=== PATIENT | male | born 1960 | race Caucasian/White ===

== ENCOUNTER 2019-08-03 03:40 | Inpatient (IN) | payer BC ==
[2019-08-03] MEDS ORDERED: ONDANSETRON 4 MG/2 ML VIAL IVP PRN (04:18)
[2019-08-03] MEDS ORDERED: HYDROmorphone 1 MG/ML 1 ML SYRINGE IVP PRN (04:18)
[2019-08-03] MEDS ORDERED: HYDROmorphone 0.5 MG/0.5 ML SYRINGE IVP PRN (04:18)
[2019-08-03] MEDS ORDERED: NALOXONE 0.4 MG/ML 1 ML VIAL IV PRN (04:18)
--- NOTE | 2019-08-03 04:22 | ED ---
General Adult HPI - General Chief complaint: Urogenital Stated complaint: Kidney stone Time Seen by Provider: 08/03/19 03:59 Source: patient, EMS Mode of arrival: EMS Limitations: no limitations - History of Present Illness Initial comments: This patient is 59-year-old man with history of previous nephrolithiasis, who presents with complaint of right sided flank pain that is been going on approximately 2 days. The patient had gone to [facility] to be evaluated for this and was found to have a 13 mm stone at the right ureteropelvic junction. There was associated hydronephrosis. In addition the patient's labs showed a creatinine of 2.1 and BUN of 43 which is elevated above the baseline. The patient did receive 1 g Rocephin at the other facility. The patient has previously been treated by Dr. Kessler. The patient does acknowledge having some low-grade fever and chills over the course of this evening. Onset/Timin -: days(s) Location: abdomen Quality: dull Consistency: constant Improves with: none Worsens with: none Associated Symptoms: cough, fever/chills, malaise Treatments Prior to Arrival: other - Related Data Allergies Allergy/AdvReac Type Severity Reaction Status Date / Time Iodinated Contrast Media AdvReac Anaphylaxis Verified 08/03/19 04:00 Review of Systems ROS Statement: Those systems with pertinent positive or pertinent negative responses have been documented in the HPI. ROS Other: All systems not noted in ROS Statement are negative. Constitutional: Reports: fever, chills ENT: Reports: congestion. Denies: throat pain Respiratory: Reports: cough. Denies: dyspnea, wheezes Cardiovascular: Denies: chest pain, palpitations, edema, syncope Gastrointestinal: Reports: abdominal pain. Denies: nausea, vomiting, diarrhea, constipation Genitourinary: Denies: dysuria, hematuria, testicular pain Musculoskeletal: Denies: back pain Skin: Denies: rash Neurological: Denies: headache, weakness, numbness Past Medical History Past Medical History: Diabetes Mellitus Additional Past Medical History / Comment(s): hyperuricemia, meniere's diease, kidney stones History of Any Multi-Drug Resistant Organisms: None Reported Past Surgical History: No Surgical Hx Reported Past Psychological History: No Psychological Hx Reported Smoking Status: Never smoker Past Alcohol Use History: Rare Past Drug Use History: None Reported General Exam Limitations: no limitations General appearance: alert, in no apparent distress Head exam: Present: atraumatic, normocephalic Eye exam: Present: normal appearance. Absent: scleral icterus, conjunctival injection Respiratory exam: Present: normal lung sounds bilaterally. Absent: respiratory distress, wheezes, rales, rhonchi, stridor Cardiovascular Exam: Present: regular rate, normal rhythm, normal heart sounds. Absent: systolic murmur, diastolic murmur, rubs, gallop GI/Abdominal exam: Present: soft. Absent: distended, tenderness, guarding, rebound, rigid, mass, pulsatile mass, hernia Extremities exam: Present: normal inspection, normal capillary refill. Absent: pedal edema, calf tenderness Neurological exam: Present: alert Skin exam: Present: warm, dry, intact, normal color. Absent: rash Course Vital Signs 08/03/19 03:42 Temperature 100.2 F H Pulse Rate 91 Respiratory 18 Rate Blood Pressure 98/55 O2 Sat by Pulse 94 L Oximetry Disposition Clinical Impression: Urinary tract infection, Kidney stone Disposition: ADMITTED IP TO THIS HOSP Condition: Fair
[2019-08-03] MEDS ORDERED: SODIUM CHLORIDE 0.9% 1,000 ML IV SCH (04:30)
[2019-08-03] MEDS: SODIUM CHLORIDE 0.45% 1,000 ML IV SCH ×2 (08:13→17:53)
[2019-08-03] MEDS: ACETAMINOPHEN TAB 325 MG TAB PO PRN ×2 (08:14→17:08)
--- NOTE | 2019-08-03 09:20 | P.GSHP ---
History of Present Illness H&P Date: 08/03/19 Chief Complaint: Rigors, right flank pain The patient is a 59-year-old white male with a history of recurrent uric acid urolithiasis. He takes allopurinol and potassium citrate for stone prevention. He has previously undergone 2 percutaneous nephrolithotomies. He now presents with a 2 day history of right flank discomfort and rigors. Review of lab work performed at [facility] shows a WBC count of 6.53. The serum creatinine level was 2.1. Urinalysis showed a pH of 5.5, negative nitrite, 2+ leukocyte esterase, 10-20 WBC, 10-20 RBC, 1+ bacteria. A urine culture was sent. - Constitutional Constitutional: Reports chills, Reports fever - Gastrointestinal Gastrointestinal: Reports nausea, Denies vomiting - Genitourinary (Female) Genitourinary: Reports flank pain, Reports kidney stones, Denies dysuria, Denies hematuria Past Medical History Past Medical History: Diabetes Mellitus Additional Past Medical History / Comment(s): hyperuricemia, meniere's diease, kidney stones History of Any Multi-Drug Resistant Organisms: None Reported Additional Past Surgical History / Comment(s): Bilateral percutaneous nephrolithotomy Past Psychological History: No Psychological Hx Reported Smoking Status: Never smoker Past Alcohol Use History: Rare Past Drug Use History: None Reported Medications and Allergies Allergies Allergy/AdvReac Type Severity Reaction Status Date / Time Iodinated Contrast Media AdvReac Anaphylaxis Verified 08/03/19 08:52 Surgical - Exam Vital Signs Temp Pulse Resp BP Pulse Ox 100.2 F H 91 18 98/55 94 L 08/03/19 03:42 08/03/19 03:42 08/03/19 03:42 08/03/19 03:42 08/03/19 03:42 - General well developed, well nourished, moderate distress - Respiratory normal respiratory effort - Abdomen Abdomen: soft, non tender, no guarding, no rigid, no rebound - Psychiatric oriented to time, oriented to person, oriented to place, speech is normal, memory intact Results - Imaging CT scan - abdomen: report reviewed, image reviewed Assessment and Plan (1) Bilateral nephrolithiasis Current Visit: Yes Status: Acute Code(s): N20.0 - CALCULUS OF KIDNEY SNOMED Code(s): 72827593 (2) Calculus of ureter Current Visit: Yes Status: Acute Code(s): N20.1 - CALCULUS OF URETER SNO MED Code(s): 45404437 (3) Hydronephrosis with renal and ureteral calculous obstruction Current Visit: Yes Status: Acute Code(s): N13.2 - HYDRONEPHROSIS WITH RENAL AND URETERAL CALCULOUS OBSTRUCTION SNOMED Code(s): 257915856 Plan: I reviewed the patient's CT scan. He has mild right hydronephrosis due to a 13 mm right UPJ calculus. On the right side, there are approximately 4 additional calculi measuring up to 8 mm in size. On the left side, the stone burden is greater with a collection of upper pole calculi approaching 2 cm in diameter. He is febrile, and urinalysis is suggestive of infection. In view of this, he will undergo cystoscopy with right ureteral stent insertion. If stent placement is unsuccessful, he may require placement of a percutaneous nephrostomy tube. He did receive a dose of Rocephin at [facility] prior to transfer here. I have suggested that upon discharge he increase the dosage of potassiums citrate and titrate it to achieve a urine pH of 7. The CT scan could be repeated in 4-6 weeks to determine whether or not the calculi are dissolving as a result of the urinary alkalinization. If this is unsuccessful, he may require bilateral percutaneous nephrolithotomies. Time with Patient: Greater than 30
[2019-08-03] MEDS ORDERED: PROPOFOL 10 MG/ML 20 ML VIAL IV ONE (12:12)
[2019-08-03] MEDS ORDERED: fentaNYL (PF) 50 MCG/ML 2 ML AMP ONE (12:12)
[2019-08-03] MEDS ORDERED: LIDOCAINE 1% INJ 10MG/ML (20 ML MDV) ONE (12:12)
[2019-08-03] MEDS ORDERED: ePHEDrine SULFATE/0.9% NACL/PF 50 MG/5 ML SYRINGE IV ONE (12:12)
[2019-08-03] MEDS ORDERED: MIDAZOLAM 2 MG/2 ML VIAL ONE (12:12)
--- NOTE | 2019-08-03 12:53 | P.OP ---
Date of Procedure: 08/03/19 Preoperative Diagnosis: Right hydronephrosis secondary to right UPJ calculus Postoperative Diagnosis: Same Procedure(s) Performed: Cystoscopy, right ureteral stent insertion Anesthesia: KYEA Surgeon: Anderson Mitchell Estimated Blood Loss (ml): 0 IV fluids (ml): 300 Pathology: none sent Condition: stable Disposition: PACU Indications for Procedure: The patient is a 59-year-old white male admitted with fever and right flank pain. He has a history of urolithiasis. Computed tomography scan shows mild right hydronephrosis due to a 13 mm right UPJ calculus. On the right side, there are approximately 4 additional calculi measuring up to 8 mm in size. On the left side, the stone burden is greater with a collection of upper pole calculi approaching 2 cm in diameter. He is febrile, and urinalysis is suggestive of infection. In view of this, he will undergo cystoscopy with right ureteral stent insertion. Operative Findings: Radiopaque obstructing calculi at right UPJ. Cloudy urine drained from the right renal pelvis following stent placement. This was collected and sent for culture and sensitivity. Description of Procedure: The patient was taken to the operating room and placed in the dorsolithotomy position, with legs supported in Alfonso stirrups. The external genitalia was prepped and draped sterilely. The 30 lens was used to introduce the 22-[place]izen [place] Stortz cystoscopic sheath through the urethra and into the bladder under direct vision. The prostatic urethra showed evidence of mild lateral lobe enlargement. The bladder was examined in its entirety. Both ureteral orifices were of normal anatomic location and configuration. No tumors or foreign bodies were seen. An angle-tip 0.035 inch Glidewire was passed through the cystoscope. The right ureteral orifice was cannulated, and the Glidewire was slowly advanced up to the renal pelvis. The Glidewire easily passed beyond the UPJ calculus, which was radio opaque. Likewise, the other right renal calculi were radio opaque. A 28 cm, 6-[place]izen [place] double-J ureteral stent was placed over the wire. Proper stent positioning was verified fluoroscopically and endoscopically. Cloudy urine drained from the stent. The beak of the cystoscope was placed immediately adjacent to the distal end of the stent, and urine was collected. This was saved and sent for culture and sensitivity. The bladder was emptied and the cystoscope removed. The patient tolerated the procedure well was taken to the recovery room in stable condition.
--- NOTE | 2019-08-03 13:09 | FL ---
FLUOROSCOPY 25 seconds of fluoroscopy time were utilized during right ureteral stent placement. 1 images document the procedure.
--- NOTE | 2019-08-03 13:45 | XR ---
EXAMINATION TYPE: XR KUB , 2 VIEWS DATE OF EXAM ORDERED: 08/03/2019 HISTORY: Renal calculi. COMPARISON: Previous study dated 2 08/22/2011. There is a double-J stent in place on the right. The pr oximal lead overlies the right renal pelvis and the distal lead overlies the bladder. There is an adj acent 12 mm calculus with a 2 to 3 mm calculus adjacent to this. There are several questionable perip heral calcifications in the right kidney. These are unchanged in appearance from previous. FINDINGS: 1. RIGHT-SIDED NEPHROLITHIASIS. 2. SATISFACTORY STENT PLACEMENT. IMPRESSION:
[2019-08-03 16:32] LABS: Glucose,Whole Blood 159 mg/dL (75-99)
[2019-08-03] MEDS: INSULIN ASPART (NovoLOG) 100 UNIT/ML VIAL SQ SCH ×2 (17:08→20:34)
[2019-08-03] MEDS: HEPARIN SODIUM,PORCINE 5,000 UNIT/ML 1 ML VIAL SQ SCH (20:17)
[2019-08-03 20:32] LABS: Glucose,Whole Blood 164 mg/dL (75-99)
[2019-08-04] MEDS: ACETAMINOPHEN TAB 325 MG TAB PO PRN ×3 (00:29→20:49)
[2019-08-04] MEDS: SODIUM CHLORIDE 0.45% 1,000 ML IV SCH ×3 (02:29→20:45)
[2019-08-04 06:53] LABS: Glucose,Whole Blood 126 mg/dL (75-99)
[2019-08-04] MEDS: INSULIN ASPART (NovoLOG) 100 UNIT/ML VIAL SQ SCH ×4 (07:14→21:45)
[2019-08-04] MEDS: HYDROCHLOROTHIAZIDE 25 MG TAB PO SCH (08:06)
[2019-08-04] MEDS: HEPARIN SODIUM,PORCINE 5,000 UNIT/ML 1 ML VIAL SQ SCH ×2 (08:06→20:45)
[2019-08-04] MEDS: POTASSIUM CITRATE 10 MEQ TABLET.ER PO SCH (08:06)
[2019-08-04] MEDS: ALLOPURINOL 300 MG TAB PO SCH (08:06)
[2019-08-04 09:52] LABS: Calcium 8.1 mg/dL (8.4-10.2); Potassium 4.1 mmol/L (3.5-5.1)
--- NOTE | 2019-08-04 11:22 | P.PN ---
Subjective Progress Note Date: 08/04/19 The patient is in the hospital for an obstructing urinary calculus, 12 mm at the right UPJ with urinary tract infection with sepsis. He had a CAT scan up [place] that outlines multiple bilateral renal stones. Dr. Mitchell placed a stent yesterday. He had some low-grade fever this morning but is afebrile now. I performed a percutaneous nephrostolithotomy proximally 10 years ago for a large volume of uric acid stones. The stones now at least have some calcium in them as they can be seen on KUB. He has well over 2 cm of stone in the right kidney. He would be best served with another percutaneous nephrostolithotomy in my opinion. This will be discussed with the patient. This can be done electively in the near future. He probably will also need a percutaneous nephrostolithotomy on the left side future. He will remain in the hospital another 24 hours and then can be discharged home once cultures and sensitivities are back from his urine culture Objective - Vital Signs Vital signs: Vital Signs Temp 98.5 F 08/04/19 07:17 Pulse 66 08/04/19 07:17 Resp 16 08/04/19 07:17 BP 118/68 08/04/19 07:17 Pulse Ox 97 08/04/19 07:17 Intake & Output 08/03/19 08/04/19 08/04/19 18:59 06:59 18:59 Intake Total 1200 Output Total 450 Balance 750 Weight 99.79 kg Intake: Intake, IV Titration 1200 Amount Sodium Chloride 0.45% 1, 1200 000 ml @ 100 mls/hr IV . Q10H [facility] Rx#:[id number] Output: Urine 450 Other: Voiding Method Toilet Toilet Urinal Urinal # Voids 1 - Labs CBC & Chem 7: 08/04/19 09:07 Labs: Abnormal Lab Results - Last 24 Hours (Table) 08/03/19 08/03/19 08/04/19 Range/Units 16:30 20:30 06:51 Sodium (137-145) mmol/L BUN (9-20) mg/dL Glucose (74-99) mg/dL POC Glucose (mg/dL) 159 H 164 H 126 H (75-99) mg/dL Calcium (8.4-10.2) mg/dL 08/04/19 Range/Units 09:07 Sodium 135 L (137-145) mmol/L BUN 25 H (9-20) mg/dL Glucose 200 H (74-99) mg/dL POC Glucose (mg/dL) (75-99) mg/dL Calcium 8.1 L (8.4-10.2) mg/dL Microbiology - Last 24 Hours (Table) 08/03/19 12:39 Urine Culture - Preliminary Urine,Voided
[2019-08-04 11:56] LABS: Glucose,Whole Blood 171 mg/dL (75-99)
[2019-08-04 16:53] LABS: Glucose,Whole Blood 135 mg/dL (75-99)
[2019-08-04 21:17] LABS: Glucose,Whole Blood 145 mg/dL (75-99)
[2019-08-05] MEDS: SODIUM CHLORIDE 0.45% 1,000 ML IV SCH (05:50)
[2019-08-05 06:49] LABS: Glucose,Whole Blood 124 mg/dL (75-99)
[2019-08-05] MEDS: INSULIN ASPART (NovoLOG) 100 UNIT/ML VIAL SQ SCH ×2 (07:22→11:52)
[2019-08-05] MEDS: ALLOPURINOL 300 MG TAB PO SCH (07:24)
[2019-08-05] MEDS: POTASSIUM CITRATE 10 MEQ TABLET.ER PO SCH (07:24)
[2019-08-05] MEDS: HYDROCHLOROTHIAZIDE 25 MG TAB PO SCH (07:24)
[2019-08-05 07:25] VITALS: BP 120/72; PULSE 65; RESP 17; TEMP 98.3
[2019-08-05] MEDS: HEPARIN SODIUM,PORCINE 5,000 UNIT/ML 1 ML VIAL SQ SCH (07:25)
[2019-08-05] MEDS: ACETAMINOPHEN TAB 325 MG TAB PO PRN (07:29)
[2019-08-05 11:22] LABS: Glucose,Whole Blood 184 mg/dL (75-99)
--- NOTE | 2019-08-05 18:24 | P.DS ---
Providers Date of admission: 08/03/19 04:18 Expected date of discharge: 08/05/19 Attending physician: Anderson Mitchell Primary care physician: Francisco Diaz [facility] Course: The patient has a history of urolithiasis and was admitted due to right flank pain and a fever. A CT scan showed a 1.3 cm obstructing calculus at the right ureteropelvic junction, several smaller nonobstructive right renal calculi and multiple nonobstructive left renal calculi. Dr. Mitchell performed cystoscopy with placement of a right double-J catheter on the date of admission. The patient's pain and fever resolved within 24 hours. His creatinine at the time of admission was 2.1 and it fell to 1.4 at the time of discharge. Urine culture at the time of admission showed no growth. While hospitalized the patient was seen by Dr. Kessler and is is anticipated that he will undergo elective percutaneous nephrostolithotomy sometime in late August. Patient Condition at Discharge: Fair Plan - Discharge Summary Discharge Rx Participant: No New Discharge Prescriptions: No Action Hydrochlorothiazide [Hydrodiuril] 25 mg PO DAILY Potassium Citrate [Urocit-K] 30 meq PO DAILY Diclofenac Sodium [Diclofenac Sodium ER] 100 mg PO DAILY PRN PRN Reason: Pain metFORMIN HCL [Glucophage] 500 mg PO BID Ketorolac [Toradol] 10 mg PO Q6H PRN PRN Reason: Pain Allopurinol [Zyloprim] 300 mg PO DAILY Discharge Medication List Allopurinol [Zyloprim] 300 mg PO DAILY 08/03/19 [History] Diclofenac Sodium [Diclofenac Sodium ER] 100 mg PO DAILY PRN 08/03/19 [History] Hydrochlorothiazide [Hydrodiuril] 25 mg PO DAILY 08/03/19 [History] Ketorolac [Toradol] 10 mg PO Q6H PRN 08/03/19 [History] Potassium Citrate [Urocit-K] 30 meq PO DAILY 08/03/19 [History] metFORMIN HCL [Glucophage] 500 mg PO BID 08/03/19 [History] Follow up Appointment(s)/Referral(s): Francisco Diaz MD [Primary Care Provider] - 1-2 days (no appointment needed. ) Patient Instructions/Handouts: Percutaneous Nephrolithotomy (DC) Discharge Disposition: HOME SELF-CARE
--- NOTE | 2019-08-06 13:47 | CDI ---
Documentation Clarification Form Date: 08/06/19 From: Jasmine Parker CCS Phone: If you have a question about this query, please contact Anju Rivas, Senior Compliance Analyst at [phone] between 8am and 5pm. Admit Date: 08/03/19 Discharge Date:08/05/19 Patient Name: Booker Nicholas Visit Number: [id number] ATTENTION: The Clinical Documentation Specialists (CDI) and [facility] Coding Staff appreciate your assistance in clarifying documentation. Please respond to the clarification below the line at the bottom and electronically sign. The CDI & [facility] Coding staff will review the response and follow-up if needed. Please note: Queries are made part of the Legal Health Record. If you have any questions, please contact the author of this message via ITS. Dear Dr. Jerry, The patient presented with the UTI, 12mm calculus at the right UPJ, hydronephrosis. Sepsis is documented in the 08/03 PN. History/Risk Factors: Pyonephrosis, DM Clinical Indicators: Pyonephrosis WBC: No hematology on chart Lactic acid: No labs for LA on chart Blood cultures: None drawn Vitals signs on admission: BP 98/55, RR 18, RI 91, Temp 100.2, O2 Sat 94 Treatment: Rocephin 2 gm IV Q24H In your professional opinion, please clarify if these findings signify one of the following conditions, if known: Condition Sepsis ruled out SIRS, without underlying infectious process Sepsis Other, please specify Unable to determine SIRS Criteria (2 or more of the following may indicate SIRS): -Temperature < 96.8F (36C) or > 101.0F (38.3C) -Heart Rate > 90 bpm -Respiratory Rate > 20 breaths/min or PaCO2 < 32 mmHg -White Blood Cell Count > 12,000 or < 4,000 cells/mm3 or > 10% bands -Lactate >2.0 mmol/L (>4.0 is equivalent to septic shock) This patient was suspected to have sepsis however his urine culture ultimately showed no growth. His elevated white blood count and tachycardia were most likely related to severe pain related to an obstructive calculus. If you have any further questions it should be directed to Dr. Mitchell who actually admitted the patient. The first time that I saw the patient was on the morning of his discharge. JOCELYN
== END 2019-08-05 15:49 | disposition home or self-care (01) | DRG 660 ==
LOC: EC 03:40 → 4SSUR 04:18
PROVIDERS: ADMIT Urology; ATTEND Urology
PROC: 0T768DZ Dilation of Right Ureter with Intraluminal Device, Via Natural or Artificial Opening Endoscopic (ICD-10-PCS; principal; 2019-08-03 10:00)
DX: N13.6 Pyonephrosis (principal); N20.2 Calculus of kidney with calculus of ureter; Z11.59 Encounter for screening for other viral diseases; E11.9 Type 2 diabetes mellitus without complications; H81.09 Meniere's disease, unspecified ear; Z79.84 Long term (current) use of oral hypoglycemic drugs; Z79.899 Other long term (current) drug therapy; Z87.442 Personal history of urinary calculi; Z91.041 Radiographic dye allergy status
CPT/HCPCS: 74018; 80048; 87086; 99285

== ENCOUNTER → 2019-09-03 | Outpatient (CLI) | payer BC ==
[2019-09-03 10:28] LABS: Basophils # (A) 0.1 k/uL (0-0.2); Basophils % (A) 1 %; Eosinophils # (A) 0.2 k/uL (0-0.7); Eosinophils % (A) 2 %; HCT 49.1 % (39.0-53.0); HGB 15.6 gm/dL (13.0-17.5); Lymphocytes # (A) 1.4 k/uL (1.0-4.8); Lymphocytes % (A) 15 %; MCH 30.8 pg (25.0-35.0); MCHC 31.8 g/dL (31.0-37.0); MCV 96.9 fL (80.0-100.0); Mean Platelet Volume 6.9; Monocytes # (A) 0.3 k/uL (0-1.0); Monocytes % (A) 4 %; Neutrophils # (A) 7.4 k/uL (1.3-7.7); Neutrophils % (A) 78 %; Platelet Count 318 k/uL (150-450); RBC 5.07 m/uL (4.30-5.90); RDW 13.1 % (11.5-15.5); WBC 9.5 k/uL (3.8-10.6)
[2019-09-03 10:57] LABS: Albumin 4.4 g/dL (3.5-5.0); Calcium 9.8 mg/dL (8.4-10.2); Potassium 4.8 mmol/L (3.5-5.1); Total Bilirubin 0.8 mg/dL (0.2-1.3); Total Protein 7.6 g/dL (6.3-8.2)
[2019-09-03 10:59] LABS: Appearance,Urine Cloudy (Clear); Bilirubin,Urine Negative (Negative); Blood,Urine Small (Negative); Color,Urine Yellow; Glucose,Urine (UA) Negative (Negative); Ketones,Urine Negative (Negative); Leukocyte Esterase,Urine Large (Negative); Mucus,Urine Rare /hpf; Nitrite,Urine Positive (Negative); Protein,Urine Trace (Negative); RBC,Urine 49 /hpf (0-5); Specific Gravity,Urine 1.015 (1.001-1.035); Urobilinogen,Urine <2.0 mg/dL (<2.0); WBC,Urine 89 /hpf (0-5)
== END | disposition home or self-care (01) ==
LOC: LABPAT 09:29
PROVIDERS: ATTEND Urology
DX: Z01.818 Encounter for other preprocedural examination (principal); N20.0 Calculus of kidney; R35.0 Frequency of micturition; E11.9 Type 2 diabetes mellitus without complications
CPT/HCPCS: 36415; 80053; 81001; 85025; 86850; 86900; 86901; 87086

== ENCOUNTER 2019-09-10 06:32 | Observation (INO) | payer BC ==
[2019-09-05 11:23] VITALS: BMI 26.9
--- NOTE | 2019-09-09 10:38 | P.GSHP ---
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 a13 mm obstructing right ureteral stone and urosepsis A double j cath was placed He has that stone and several others He comes for a pcnl right - Constitutional Constitutional: Denies chills, Denies fever - EENT Eyes: denies blurred vision, denies pain Ears, nose, mouth and throat: Denies headache, Denies sore throat - Cardiovascular Cardiovascular: Denies chest pain, Denies shortness of breath - Respiratory Respiratory: Denies cough, Denies 7 - Gastrointestinal Gastrointestinal: Denies abdominal pain, Denies diarrhea, Denies nausea, Denies vomiting - Genitourinary (Female) Genitourinary: Denies dysuria, Denies hematuria - Genitourinary (Male) Genitourinary: Denies dysuria, Denies hematuria - Musculoskeletal Musculoskeletal: Denies myalgias - Integumentary Integumentary: Denies pruritus, Denies rash - Neurological Neurological: Denies numbness, Denies weakness - Psychiatric Psychiatric: Denies anxiety, Denies depression - Endocrine Endocrine: Denies fatigue, Denies weight change Past Medical History Past Medical History: Diabetes Mellitus Additional Past Medical History / Comment(s): hyperuricemia, meniere's diease, kidney stones History of Any Multi-Drug Resistant Organisms: None Reported Past Surgical History: No Surgical Hx Reported Additional Past Surgical History / Comment(s): LT percutaneous nephrolithotomyX 2 AND CYSTOSCOPY, SPHINCEROTOMY SX FOR FISSURE 1987 Past Anesthesia/Blood Transfusion Reactions: No Reported Reaction Smoking Status: Never smoker - Past Family History Father History Unknown: Yes Family Medical History: Congestive Heart Failure (CHF), Diabetes Mellitus Mother Family Medical History: Diabetes Mellitus, Pulmonary Embolus Medications and Allergies Home Medications Medication Instructions Recorded Confirmed Type Diclofenac Sodium [Diclofenac 100 mg PO DAILY PRN 08/03/19 09/05/19 History Sodium ER] Ketorolac [Toradol] 10 mg PO Q6H PRN 08/03/19 09/05/19 History Potassium Citrate [Urocit-K] 30 meq PO BID 08/03/19 09/05/19 History allopurinoL [Zyloprim] 300 mg PO DAILY 08/03/19 09/05/19 History hydroCHLOROthiazide [Hydrodiuril] 25 mg PO DAILY 08/03/19 09/05/19 History metFORMIN HCL [Glucophage] 500 mg PO BID 08/03/19 09/05/19 History Acetaminophen/Diphenhydramine 2 tab PO BID PRN 09/05/19 09/05/19 History [Tylenol Pm Ex-Strength Caplet] Allergies Allergy/AdvReac Type Severity Reaction Status Date / Time Iodinated Contrast Media Allergy Anaphylaxis Verified 09/05/19 11:04 Surgical - Exam - General well developed, well nourished, no distress - Eyes PERRL - ENT no hearing loss - Neck no masses - Respiratory normal expansion, normal respiratory effort - Cardiovascular Rhythm: regular - Abdomen Abdomen: soft, non tender - Genitourinary normal penis with no external lesions, testicles present - Integumentary no rash, no growths - Neurologic normal sensation - Musculoskeletal normal gait, normal posture - Psychiatric oriented to time, oriented to person, oriented to place, speech is normal, memory intact Assessment and Plan Assessment: Impression : Right renal stones [large] Plan: PCNL right
[~2019-09-10 06:32] MED LIST: AMPICILLIN 1,000 MG in SODIUM CHLORIDE 0.9% 50 ML IVPB ONE; DEXAMETHASONE SOD PHOSPHATE 10 MG/ML 1 ML VIAL IV ONE; GENTAMICIN 130 MG in SODIUM CHLORIDE 0.9% 100 ML IVPB ONE; HYDROmorphone 0.5 MG/0.5 ML SYRINGE IVP PRN; ONDANSETRON 4 MG/2 ML VIAL IVP ONE
[2019-09-10] MEDS ORDERED: ONDANSETRON 4 MG/2 ML VIAL ONE (06:54)
[2019-09-10] MEDS ORDERED: LIDOCAINE 1% (10MG/ML) FOR IV START INTRADERMA ONE (07:19)
[2019-09-10] MEDS: LACTATED RINGERS 1,000 ML IV SCH (07:19)
[2019-09-10 07:27] LABS: Glucose,Whole Blood 123 mg/dL (75-99)
[2019-09-10] MEDS ORDERED: MIDAZOLAM 2 MG/2 ML VIAL ONE (07:28)
[2019-09-10] MEDS ORDERED: fentaNYL (PF) 50 MCG/ML 2 ML AMP ONE (07:28)
[2019-09-10] MEDS ORDERED: ROCURONIUM BROMIDE 10 MG/ML 5 ML VIAL IV ONE (07:28)
[2019-09-10] MEDS ORDERED: LIDOCAINE 1% INJ 10MG/ML (20 ML MDV) ONE (07:28)
[2019-09-10] MEDS ORDERED: NEOSTIGMINE 1 MG/ML 10 ML VIAL ONE (07:28)
[2019-09-10] MEDS ORDERED: PROPOFOL 10 MG/ML 20 ML VIAL IV ONE (07:28)
[2019-09-10] MEDS ORDERED: SUCCINYLCHOLINE CHLORIDE 100 MG/5 ML SYR IV ONE (07:28)
[2019-09-10] MEDS ORDERED: GLYCOPYRROLATE 0.2 MG/ML 2 ML VIAL ONE (07:28)
--- NOTE | 2019-09-10 07:58 | XR ---
KUB HISTORY: Kidney stones Frontal KUB and 2 images correlated prior KUB 08/03/2019 Right-sided double-J ureteral stent is in place. Probable vascular calcifications again noted within the pelvis. Multiple calcifications are seen overlying the right kidney with probable right renal pel dl stone, calcifications are stable. There are at least 5 calcifications. Partial staghorn calculus present at the upper pole left kidney again noted. No evident pneumoperitoneum or bowel obstruction. There is retained fecal debris throughout the distribution colon. Levoscoliosis centered at the mid l umbar spine degenerative disc changes are again seen. IMPRESSION: Bilateral nephrolithiasis.
[2019-09-10] MEDS ORDERED: IOHEXOL 350 MG/ML 50 ML in EMPTY BAG 1 BAG IRRIGATION ONE (08:36)
[2019-09-10] MEDS ORDERED: MAG HYDROX/AL HYDROX/SIMETH 30 ML CUP PO PRN (09:13)
[2019-09-10] MEDS ORDERED: ONDANSETRON 4 MG/2 ML VIAL IVP PRN (09:13)
[2019-09-10] MEDS ORDERED: NALOXONE 0.4 MG/ML 1 ML VIAL IV PRN (09:16)
[2019-09-10] MEDS ORDERED: HYDROmorphone PCA 10 MG/50 ML BAG IV PRN (09:16)
--- NOTE | 2019-09-10 09:22 | P.OP ---
Date of Procedure: 09/10/19 Preoperative Diagnosis: Right renal calculi, large Postoperative Diagnosis: Same Procedure(s) Performed: Cystoscopy, removal double-J catheter right, placement of occluding balloon ureteral catheter right, percutaneous nephrostomy (Dr. Bai), percutaneous nephrostolithotomy (large, greater than 2 cm), ultrasound and laser technique, placement of 10 J nephrostomy Anesthesia: QUETA Surgeon: John Kessler Estimated Blood Loss (ml): 50 Pathology: other (Stone) Condition: stable Disposition: PACU Indications for Procedure: The patient is a 59-year-old gentleman. 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 He presented a couple weeks ago with an obstructing large renal pelvic stone, urinary tract infection with sepsis. A double-J catheters placed and antibiotics were administered. He has over 2 cm of stone, 5 total stones in his kidney. Comes for percutaneous nephrostolithotomy to remove all the stones. Description of Procedure: The patient is brought to the operating suite. He is given a general endotracheal anesthesia on the transport gurney. He's placed in a frog position with a sterile prep and drape. Cystoscopy of the Foroblique lens and 22-[place] sheath identifies a normal urethra. Prostatic urethra is minimally obstructing. Upon entering the bladder it the double-J catheter emanating from the right ureteral orifice is identified. It is grasped and removed. I then pass a 5- [place] occluding balloon catheter up the right ureter into the renal pelvis. The patient is placed in a prone position with care to airways and extremities. After sterile prep and drape Dr. Bai of radiology performed percutaneous access to a right lower pole calyx. I then dilate the tract to 30-Qatari. The 2 larger stones in the renal pelvis are identified and have to be broken with ultrasonic lithotripsy. The fragments are then grasped and removed. I then pass the flexible scope throughout the collecting system and remove 2 smaller stones each about 76-7 mm and then I have to break a larger stone, greater than 1 cm into smaller pieces to stone basket. At the end of the procedure the no remaining stone fluoroscopically or endoscopically. A 10-Q[place]ari J nephrostomy tube was placed. The wires and ureteral catheter removed. The patient is awakened and returned recovery room good condition. He tolerated the procedure well. Blood loss is approximately 50 mL. He'll be observed in the hospital overnight.
[2019-09-10 09:28] LABS: Glucose,Whole Blood 158 mg/dL (75-99)
--- NOTE | 2019-09-10 10:48 | FL ---
EXAMINATION TYPE: FL Perc Nephrostomy New Access DATE OF EXAM: 09/10/2019 COMPARISON: CT 08/02/2019 from outside institution HISTORY: Right-sided renal calculi PROCEDURE: Maximal barrier technique was utilized, hand hygiene obtained with soap and water and alcohol-based h and rub. The skin overlying the right kidney was localized using fluoroscopy and the overlying skin prepped and draped. Skin yazmin was made with a scalpel. Access was gained under fluoroscopy, followin g placement of a ureteral occlusion balloon by the referring clinician and instillation of air in the renal collecting system with a 21-gauge needle to right kidney. A suitable posterior calyx at the l ower pole was chosen. A 0.018 inch wire was advanced. The access site was dilated , access site wa s upsized, safety wire deployed and subsequently a sheath was advanced into the renal pelvis followin g dilation with balloon along the tract. The patient underwent nephrolithotomy by the referring bucky keith. The patient remained in stable condition without complication. The patient was discharged to observation in the care of anesthesia. A 0.56 minutes fluoroscopy time, 4 intraoperative images document the procedure IMPRESSION: STATUS POST NEPHROSTOMY PLACEMENT FOR NEPHROLITHOTOMY WITH FLUOROSCOPIC GUIDANCE. THIS PROCEDURE PER FORMED BY THE UNDERSIGNED.
[2019-09-10] MEDS: SODIUM CHLORIDE 0.45% 1,000 ML IV SCH ×2 (12:25→23:20)
[2019-09-10] MEDS: ACETAMINOPHEN TAB 325 MG TAB PO PRN ×2 (12:29→19:12)
[2019-09-10] MEDS ORDERED: ETODOLAC 400 MG TAB PO PRN (16:00)
[2019-09-10 16:35] LABS: Glucose,Whole Blood 177 mg/dL (75-99)
[2019-09-10] MEDS: metFORMIN 500 MG TAB PO SCH (17:50)
[2019-09-10 20:35] LABS: Glucose,Whole Blood 158 mg/dL (75-99)
[2019-09-10] MEDS: POTASSIUM CITRATE 10 MEQ TABLET.ER PO SCH (21:21)
[2019-09-11 01:38] VITALS: TEMP 98.5
[2019-09-11] MEDS: LACTATED RINGERS 1,000 ML IV SCH (04:36)
--- NOTE | 2019-09-11 06:29 | P.DS ---
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 He had 5 stones in his right kidney as well as a stent placed because of urinary tract infection with sepsis and obstruction of large right renal pelvic stones. He underwent a right percutaneous nephrostolithotomy and I removed all a stone yesterday. He did well overnight. His pain is controlled. His urine is clearing. His Treadwell catheter is clear. I'll remove his Treadwell catheter. He'll be discharged home with his nephrostomy tube. He'll follow-up on September 14Sunday for nephrostomy tube removal. He'll take Tylenol or Toradol at home for pain. Postoperative instructions been given. He'll resume his home medication. His condition is good. Patient Condition at Discharge: Good Plan - Discharge Summary Discharge Rx Participant: No New Discharge Prescriptions: No Action hydroCHLOROthiazide [Hydrodiuril] 25 mg PO DAILY Potassium Citrate [Urocit-K] 30 meq PO BID Diclofenac Sodium [Diclofenac Sodium ER] 100 mg PO DAILY PRN PRN Reason: Pain metFORMIN HCL [Glucophage] 500 mg PO BID Ketorolac [Toradol] 10 mg PO Q6H PRN PRN Reason: Pain allopurinoL [Zyloprim] 300 mg PO DAILY Acetaminophen/Diphenhydramine [Tylenol Pm Ex-Strength Caplet] 2 tab PO BID PRN PRN Reason: Pain Discharge Medication List Diclofenac Sodium [Diclofenac Sodium ER] 100 mg PO DAILY PRN 08/03/19 [History] Ketorolac [Toradol] 10 mg PO Q6H PRN 08/03/19 [History] Potassium Citrate [Urocit-K] 30 meq PO BID 08/03/19 [History] allopurinoL [Zyloprim] 300 mg PO DAILY 08/03/19 [History] hydroCHLOROthiazide [Hydrodiuril] 25 mg PO DAILY 08/03/19 [History] metFORMIN HCL [Glucophage] 500 mg PO BID 08/03/19 [History] Acetaminophen/Diphenhydramine [Tylenol Pm Ex-Strength Caplet] 2 tab PO BID PRN 09/05/19 [History] Follow up Appointment(s)/Referral(s): John Kessler MD [STAFF PHYSICIAN] - 09/15/19 Activity/Diet/Wound Care/Special Instructions: home with nephrostomy tube Discharge Disposition: HOME SELF-CARE
[2019-09-11 06:56] LABS: Glucose,Whole Blood 119 mg/dL (75-99)
[2019-09-11] MEDS: POTASSIUM CITRATE 10 MEQ TABLET.ER PO SCH (08:04)
[2019-09-11] MEDS: metFORMIN 500 MG TAB PO SCH (08:04)
[2019-09-11 08:13] VITALS: BP 114/66; PULSE 65; RESP 17
[2019-09-11] MEDS ORDERED: hydroCHLOROthiazide 25 MG TAB PO SCH (09:00)
[2019-09-11] MEDS ORDERED: allopurinoL 300 MG TAB PO SCH (09:00)
[2019-09-11 11:43] LABS: Glucose,Whole Blood 102 mg/dL (75-99)
[2019-09-11] MEDS: ACETAMINOPHEN TAB 325 MG TAB PO PRN (11:56)
[2019-09-11] MEDS: SODIUM CHLORIDE 0.45% 1,000 ML IV SCH (13:23)
== END 2019-09-11 14:46 | disposition home or self-care (01) ==
LOC: OR 06:32 → 4SSUR 11:46 → OR 20:59
PROVIDERS: ADMIT Urology; ATTEND Urology
DX: N20.0 Calculus of kidney (principal); E11.9 Type 2 diabetes mellitus without complications; H81.09 Meniere's disease, unspecified ear; Z79.84 Long term (current) use of oral hypoglycemic drugs; Z79.899 Other long term (current) drug therapy; Z91.041 Radiographic dye allergy status; Z98.890 Other specified postprocedural states; Z87.440 Personal history of urinary (tract) infections; Z86.19 Personal history of other infectious and parasitic diseases; Z87.442 Personal history of urinary calculi; Z83.3 Family history of diabetes mellitus; Z82.49 Family history of ischemic heart disease and other diseases of the circulatory system
CPT/HCPCS: 82365; 50432; 74018; 50081; G0378 ×2; C2628; C1769 ×2; C1894; C1729; J2250; J1580; J1100; J2710; J2405; J2001; J3010; J0290; J0330; J2704; Q9967; J1170; 86850; 86900; 86901

== ENCOUNTER 2019-09-13 20:36 | Inpatient (IN) | payer BC ==
[2019-09-13] MEDS ORDERED: diphenhydrAMINE 50 MG/ML 1 ML VIAL IVP STA (21:13)
[2019-09-13] MEDS ORDERED: methylPREDNISolone SOD SUCCI 125 MG/2 ML VIAL IV STA (21:13)
[2019-09-13] MEDS ORDERED: FAMOTIDINE 20 MG/2 ML VIAL IV STA (21:13)
--- NOTE | 2019-09-13 21:13 | ED ---
General Adult HPI - General Chief complaint: Urogenital Stated complaint: Post Op,Blood In Pee Time Seen by Provider: 09/13/19 20:50 Source: patient Mode of arrival: ambulatory Limitations: no limitations - History of Present Illness Initial comments: Dictation was produced using [employer] dictation software. please excuse any grammatical, word or spelling errors. This patient was cared for during a federal and state declared state of emergency secondary to Covid 19 Chief Complaint: 59-year-old male presents with chief complaint of lenora blood coming from nephrostomy tube. History of Present Illness: 59-year-old male here he has past medical history of kidney stones, diabetes presents today with bleeding from nephrostomy tube. P atient states that 3 days ago he had operative interventions for removal of several right-sided kidney stones. 2 days ago patient had cystoscopy, removal double-J catheter, percutaneous frosted lithotomy and nephrostomy tube placement. Patient states that after the procedure. He reports that today he is recovered at home when he noticed that there was lenora red blood coming out of his nephrostomy tube. He states that he filled his nephrostomy reservoir bag twice and and treated with lenora red blood. He was concerned and called the urology office and was instructed to come to the emergency department. Patient has any lightheadedness. Denies any abdominal pain. Denies any flank pain wo rsened after the procedure. States that after the procedure his nephrostomy drainage was more yellow and more reminiscent appearing of urine than of blood. The ROS documented in this emergency department record has been reviewed and confirmed by me. Those systems with pertinent positive or negative responses have been documented in the HPI. All other systems are other negative and/or noncontributory. PHYSICAL EXAM: General Impression: Alert and oriented x3, not in acute distress HEENT: Normocephalic atraumatic, extra-ocular movements intact, pupils equal and reactive to light bilaterally, mucous membranes moist. Cardiovascular: Heart regular rate and rhythm Chest: Able to complete full sentences, no retractions, no tachypnea Abdomen: abdomen soft, non-tender, non-distended, no organomegaly Musculoskeletal: Pulses present and equal in all extremities, no peripheral edema Flank: Nephrostomy tube sites clean dry and intact without any drainage of blood from the surgical site. Nephrostomy tubing is full of lenora red blood. Motor: no focal deficits noted Neurological: CN II-XII grossly intact, no focal motor or sensory deficits noted Skin: Intact with no visualized rashes Psych: Normal affect and mood ED course: 59-year-old male with recent right kidney intervention for kidney stones presents with lenora blood collecting in his nephrostomy tube reservoir. Vital signs upon arrival shows heart rate of 117, worse vital signs within acceptable limits. Dr. Morales who was on-call for Dr. White was contacted. He did recommend CT angio of the abdomen for possible vascular injury involving the nephrostomy tube. Laboratory evaluation obtained. Mild leukocytosis of 12.8 likely secondary to postoperative leukocytosis. Hemoccult stable at 15.2. Coag panel unremarkable. Metabolic panel is negative. I did receive a call from Dr. Cage several minutes later after the hemoglobin resulted. He requested that the CT be canceled anticipation minute observation for serial hemoglobins. Patient reevaluated at bedside to be in stable medical condition. He is hemodynamically stable. Is well-appearing. He is agreeable with disposition - Related Data Home Medications Medication Instructions Recorded Confirmed Diclofenac Sodium [Diclofenac 100 mg PO DAILY PRN 08/03/19 09/10/19 Sodium ER] Ketorolac [Toradol] 10 mg PO Q6H PRN 08/03/19 09/10/19 Potassium Citrate [Urocit-K] 30 meq PO BID 08/03/19 09/10/19 allopurinoL [Zyloprim] 300 mg PO DAILY 08/03/19 09/10/19 hydroCHLOROthiazide [Hydrodiuril] 25 mg PO DAILY 08/03/19 09/10/19 metFORMIN HCL [Glucophage] 500 mg PO BID 08/03/19 09/10/19 Acetaminophen/Diphenhydramine 2 tab PO BID PRN 09/05/19 09/10/19 [Tylenol Pm Ex-Strength Caplet] Allergies Allergy/AdvReac Type Severity Reaction Status Date / Time Iodinated Contrast Media Allergy Anaphylaxis Verified 09/13/19 20:48 Review of Systems ROS Statement: Those systems with pertinent positive or pertinent negative responses have been documented in the HPI. ROS Other: All systems not noted in ROS Statement are negative. Past Medical History Past Medical History: Diabetes Mellitus Additional Past Medical History / Comment(s): hyperuricemia, meniere's diease, kidney stones History of Any Multi-Drug Resistant Organisms: None Reported Past Surgical History: No Surgical Hx Reported Additional Past Surgical History / Comment(s): LT percutaneous nephrolithotomyX 2 AND CYSTOSCOPY, SPHINCEROTOMY SX FOR FISSURE 1987, Past Anesthesia/Blood Transfusion Reactions: No Reported Reaction Past Psychological History: No Psychological Hx Reported Smoking Status: Never smoker Past Alcohol Use History: Rare Past Drug Use History: None Reported - Past Family History Father History Unknown: Yes Family Medical History: Congestive Heart Failure (CHF), Diabetes Mellitus Mother Family Medical History: Diabetes Mellitus, Pulmonary Embolus General Exam Limitations: no limitations Course Vital Signs 09/13/19 20:44 Temperature 98.1 F Pulse Rate 117 H Respiratory 20 Rate Blood Pressure 126/76 O2 Sat by Pulse 97 Oximetry Medical Decision Making - Lab Data Result diagrams: 09/13/19 21:00 09/13/19 21:00 Lab Results 09/13/19 09/13/19 09/13/19 Range/Units 21:00 21:00 21:00 WBC 12.8 H (3.8-10.6) k/uL RBC 4.88 (4.30-5.90) m/uL Hgb 15.2 (13.0-17.5) gm/dL Hct 45.3 (39.0-53.0) % MCV 92.9 (80.0-100.0) fL MCH 31.2 (25.0-35.0) pg MCHC 33.5 (31.0-37.0) g/dL RDW 13.3 (11.5-15.5) % Plt Count 356 (150-450) k/uL Neutrophils % 80 % Lymphocytes % 11 % Monocytes % 5 % Eosinophils % 3 % Basophils % 1 % Neutrophils # 10.2 H (1.3-7.7) k/uL Lymphocytes # 1.5 (1.0-4.8) k/uL Monocytes # 0.6 (0-1.0) k/uL Eosinophils # 0.4 (0-0.7) k/uL Basophils # 0.1 (0-0.2) k/uL PT 9.9 (9.0-12.0) sec INR 1.0 (<1.2) APTT 23.7 (22.0-30.0) sec Sodium 136 L (137-145) mmol/L Potassium 4.4 (3.5-5.1) mmol/L Chloride 101 (98-107) mmol/L Carbon Dioxide 23 (22-30) mmol/L Anion Gap 12 mmol/L BUN 26 H (9-20) mg/dL Creatinine 1.19 (0.66-1.25) mg/dL Est GFR (CKD-EPI)AfAm 76 (>60 ml/min/1.73 sqM) Est GFR (CKD-EPI)NonAf 66 (>60 ml/min/1.73 sqM) Glucose 139 H (74-99) mg/dL Calcium 9.7 (8.4-10.2) mg/dL Disposition Clinical Impression: Nephrostomy tube bleed Disposition: ADMITTED IP TO THIS HOSP Condition: Fair Referrals: Francisco Diaz MD [Primary Care Provider] - 1-2 days Time of Disposition: 22:03
[2019-09-13 21:15] LABS: Basophils # (A) 0.1 k/uL (0-0.2); Basophils % (A) 1 %; Eosinophils # (A) 0.4 k/uL (0-0.7); Eosinophils % (A) 3 %; HCT 45.3 % (39.0-53.0); HGB 15.2 gm/dL (13.0-17.5); Lymphocytes # (A) 1.5 k/uL (1.0-4.8); Lymphocytes % (A) 11 %; MCH 31.2 pg (25.0-35.0); MCHC 33.5 g/dL (31.0-37.0); MCV 92.9 fL (80.0-100.0); Mean Platelet Volume 7.3; Monocytes # (A) 0.6 k/uL (0-1.0); Monocytes % (A) 5 %; Neutrophils # (A) 10.2 k/uL (1.3-7.7); Neutrophils % (A) 80 %; Platelet Count 356 k/uL (150-450); RBC 4.88 m/uL (4.30-5.90); RDW 13.3 % (11.5-15.5); WBC 12.8 k/uL (3.8-10.6)
[2019-09-13 21:25] LABS: Partial Thromboplastin Time 23.7 sec (22.0-30.0); Prothrombin Time 9.9 sec (9.0-12.0)
[2019-09-13 21:29] LABS: Calcium 9.7 mg/dL (8.4-10.2); Potassium 4.4 mmol/L (3.5-5.1)
[2019-09-13] MEDS ORDERED: ACETAMINOPHEN TAB 325 MG TAB PO PRN ×2 (21:51→23:35)
[2019-09-13] MEDS ORDERED: NALOXONE 0.4 MG/ML 1 ML VIAL IV PRN (21:51)
[2019-09-13] MEDS ORDERED: SODIUM CHLORIDE 0.9% 1,000 ML IV SCH (22:00)
[2019-09-13 22:19] LABS: RBC,Urine >182 /hpf (0-5); WBC,Urine >182 /hpf (0-5)
[2019-09-13 22:20] LABS: Appearance,Urine Bloody (Clear); Color,Urine Red
[2019-09-13] MEDS ORDERED: traMADol 50 MG TAB PO PRN (23:34)
[2019-09-13] MEDS: SODIUM CHLORIDE 0.9% 1,000 ML IV SCH (23:47)
[2019-09-14] MEDS: SODIUM CHLORIDE 0.9% 1,000 ML IV SCH ×3 (05:55→20:23)
[2019-09-14 06:12] LABS: Glucose,Whole Blood 206 mg/dL (75-99)
[2019-09-14 06:42] LABS: HCT 40.8 % (39.0-53.0); HGB 13.7 gm/dL (13.0-17.5); MCH 31.2 pg (25.0-35.0); MCHC 33.6 g/dL (31.0-37.0); MCV 92.7 fL (80.0-100.0); Platelet Count 296 k/uL (150-450); RBC 4.41 m/uL (4.30-5.90); RDW 13.3 % (11.5-15.5); WBC 6.7 k/uL (3.8-10.6)
[2019-09-14] MEDS: allopurinoL 300 MG TAB PO SCH (08:15)
[2019-09-14] MEDS: metFORMIN 500 MG TAB PO SCH ×2 (08:15→20:23)
[2019-09-14] MEDS: hydroCHLOROthiazide 25 MG TAB PO SCH (08:15)
[2019-09-14] MEDS: POTASSIUM CITRATE 10 MEQ TABLET.ER PO SCH ×2 (08:45→21:07)
[2019-09-14 11:39] LABS: Glucose,Whole Blood 219 mg/dL (75-99)
[2019-09-14 11:53] LABS: Basophils % (A) 0 %; Eosinophils % (A) 0 %; HCT 43.6 % (39.0-53.0); HGB 14.3 gm/dL (13.0-17.5); Lymphocytes # (A) 0.7 k/uL (1.0-4.8); Lymphocytes % (A) 6 %; MCH 30.8 pg (25.0-35.0); MCHC 32.9 g/dL (31.0-37.0); MCV 93.7 fL (80.0-100.0); Monocytes # (A) 0.3 k/uL (0-1.0); Monocytes % (A) 3 %; Neutrophils # (A) 11.8 k/uL (1.3-7.7); Neutrophils % (A) 91 %; Platelet Count 329 k/uL (150-450); RBC 4.65 m/uL (4.30-5.90); RDW 13.4 % (11.5-15.5)
--- NOTE | 2019-09-14 13:54 | P.GSHP ---
History of Present Illness H&P Date: 09/14/19 Mr Nicholas is 59 yo male with hx of right sided kidney stone S/P PCNL on 09/[address] Kessler. He presented to the ED with hematuria from the PCN and martin. He was also complaining of flank pain. Denies any fever/chills, dysuria. This am he indicates his flank resolved. He is still having light red urine from the nephrostomy tube. Hgb is stable. He is tolerating diet, denies any N/V. - Constitutional Constitutional: Denies chills, Denies fever, Denies weakness - EENT Ears, nose, mouth and throat: Denies headache, Denies sore throat - Cardiovascular Cardiovascular: Denies chest pain, Denies shortness of breath - Gastrointestinal Gastrointestinal: Reports abdominal pain, Denies nausea, Denies vomiting - Genitourinary (Female) Genitourinary: Reports flank pain, Reports hematuria, Reports kidney stones Past Medical History Past Medical History: Diabetes Mellitus Additional Past Medical History / Comment(s): hyperuricemia, meniere's diease, kidney stones History of Any Multi-Drug Resistant Organisms: None Reported Past Surgical History: No Surgical Hx Reported Additional Past Surgical History / Comment(s): LT percutaneous nephrolithotomyX 2 AND CYSTOSCOPY, SPHINCEROTOMY SX FOR FISSURE 1987, percutaneous frosted lithotomy and nephrotube placement 09/10/19 Past Anesthesia/Blood Transfusion Reactions: No Reported Reaction Past Psychological History: No Psychological Hx Reported Smoking Status: Never smoker Past Alcohol Use History: Rare Past Drug Use History: None Reported - Past Family History Father History Unknown: Yes Family Medical History: Congestive Heart Failure (CHF), Diabetes Mellitus Mother Family Medical History: Diabetes Mellitus, Pulmonary Embolus Medications and Allergies Home Medications Medication Instructions Recorded Confirmed Type Diclofenac Sodium [Diclofenac 100 mg PO DAILY PRN 08/03/19 09/13/19 History Sodium ER] Ketorolac [Toradol] 10 mg PO Q6H PRN 08/03/19 09/13/19 History Potassium Citrate [Urocit-K] 30 meq PO BID 08/03/19 09/13/19 History allopurinoL [Zyloprim] 300 mg PO DAILY 08/03/19 09/13/19 History hydroCHLOROthiazide [Hydrodiuril] 25 mg PO DAILY 08/03/19 09/13/19 History metFORMIN HCL [Glucophage] 500 mg PO BID 08/03/19 09/13/19 History Acetaminophen/Diphenhydramine 2 tab PO BID PRN 09/05/19 09/13/19 History [Tylenol Pm Ex-Strength Caplet] Allergies Allergy/AdvReac Type Severity Reaction Status Date / Time Iodinated Contrast Media Allergy Anaphylaxis Verified 09/13/19 22:22 Surgical - Exam Vital Signs Temp Pulse Resp BP Pulse Ox 98.1 F 117 H 20 126/76 97 09/13/19 20:44 09/13/19 20:44 09/13/19 20:44 09/13/19 20:44 09/13/19 20:44 - General well developed, well nourished, no distress, no pain - Respiratory normal expansion, normal respiratory effort - Abdomen Abdomen: soft, non tender - Psychiatric oriented to time, oriented to person, oriented to place, speech is normal Results - Labs 09/14/19 11:17 09/13/19 21:00 Abnormal Lab Results - Last 24 Hours (Table) 09/13/19 09/13/19 09/13/19 Range/Units 21:00 21:00 22:01 WBC 12.8 H (3.8-10.6) k/uL Neutrophils # 10.2 H (1.3-7.7) k/uL Lymphocytes # (1.0-4.8) k/uL Sodium 136 L (137-145) mmol/L BUN 26 H (9-20) mg/dL Glucose 139 H (74-99) mg/dL POC Glucose (mg/dL) (75-99) mg/dL Urine RBC >182 H (0-5) /hpf Urine WBC >182 H (0-5) /hpf 09/14/19 09/14/19 09/14/19 Range/Units 06:11 11:17 11:37 WBC 13.0 H (3.8-10.6) k/uL Neutrophils # 11.8 H (1.3-7.7) k/uL Lymphocytes # 0.7 L (1.0-4.8) k/uL Sodium (137-145) mmol/L BUN (9-20) mg/dL Glucose (74-99) mg/dL POC Glucose (mg/dL) 206 H 219 H (75-99) mg/dL Urine RBC (0-5) /hpf Urine WBC (0-5) /hpf Microbiology - Last 24 Hours (Table) 09/13/19 22:01 Urine Culture - Preliminary Urine,Voided Diabetes panel 09/13/19 Range/Units 21:00 Sodium 136 L (137-145) mmol/L Potassium 4.4 (3.5-5.1) mmol/L Chloride 101 (98-107) mmol/L Carbon Dioxide 23 (22-30) mmol/L BUN 26 H (9-20) mg/dL Creatinine 1.19 (0.66-1.25) mg/dL Glucose 139 H (74-99) mg/dL Calcium 9.7 (8.4-10.2) mg/dL Calcium panel 09/13/19 Range/Units 21:00 Calcium 9.7 (8.4-10.2) mg/dL Pituitary panel 09/13/19 Range/Units 21:00 Sodium 136 L (137-145) mmol/L Potassium 4.4 (3.5-5.1) mmol/L Chloride 101 (98-107) mmol/L Carbon Dioxide 23 (22-30) mmol/L BUN 26 H (9-20) mg/dL Creatinine 1.19 (0.66-1.25) mg/dL Glucose 139 H (74-99) mg/dL Calcium 9.7 (8.4-10.2) mg/dL Adrenal panel 09/13/19 Range/Units 21:00 Sodium 136 L (137-145) mmol/L Potassium 4.4 (3.5-5.1) mmol/L Chloride 101 (98-107) mmol/L Carbon Dioxide 23 (22-30) mmol/L BUN 26 H (9-20) mg/dL Creatinine 1.19 (0.66-1.25) mg/dL Glucose 139 H (74-99) mg/dL Calcium 9.7 (8.4-10.2) mg/dL Assessment and Plan Assessment: Mr Nicholas is 59 yo male S/P R PCNL, Admitted with gross hematuria. Hgb stable. Output from nephrostomy tube is light red this am Plan: -Monitor UO, repeat Hgb tomorrow -PVR -Potential discharge home tomorrow
[2019-09-14 16:37] LABS: Glucose,Whole Blood 170 mg/dL (75-99)
[2019-09-14 20:01] LABS: Glucose,Whole Blood 152 mg/dL (75-99)
[2019-09-15] MEDS: SODIUM CHLORIDE 0.9% 1,000 ML IV SCH ×4 (01:26→22:28)
[2019-09-15 06:23] LABS: Glucose,Whole Blood 106 mg/dL (75-99)
--- NOTE | 2019-09-15 07:26 | P.PN ---
Subjective Progress Note Date: 09/15/19 The patient underwent a right percutaneous nephrostolithotomy last Sunday. He presented to the hospital yesterday with blood emanating from the nephrostomy tube and voiding blood. It has cleared completely. His urine was clear this morning. I pulled his nephrostomy tube and there is a fair amount of blood coming from the nephrostomy track site consistent with prostate retract trauma. A pressure we placed on the wound and we'll observe him to make sure the settles down. We'll monitor his vital signs and hemoglobin if necessary Objective - Vital Signs Vital signs: Vital Signs Temp 98.1 F 09/15/19 03:00 Pulse 60 09/15/19 03:00 Resp 18 09/15/19 03:00 BP 110/67 09/15/19 03:00 Pulse Ox 96 09/15/19 03:00 Intake & Output 09/14/19 09/15/19 09/15/19 18:59 06:59 18:59 Intake Total 476 650 Output Total 1350 1575 Balance -874 -925 Intake: Intake, IV Titration 300 Amount Sodium Chloride 0.9% 1, 300 000 ml @ 150 mls/hr IV . Q6H40M [facility] Rx#:[id number] Oral 476 350 Output: Drainage 1050 125 Right Back 1050 125 Urine 300 1450 Other: Voiding Method Toilet # Voids 3 - Labs CBC & Chem 7: 09/14/19 11:17 09/13/19 21:00 Labs: Abnormal Lab Results - Last 24 Hours (Table) 09/14/19 09/14/19 09/14/19 Range/Units 11:17 11:37 16:35 WBC 13.0 H (3.8-10.6) k/uL Neutrophils # 11.8 H (1.3-7.7) k/uL Lymphocytes # 0.7 L (1.0-4.8) k/uL POC Glucose (mg/dL) 219 H 170 H (75-99) mg/dL 09/14/19 09/15/19 Range/Units 20:00 06:21 WBC (3.8-10.6) k/uL Neutrophils # (1.3-7.7) k/uL Lymphocytes # (1.0-4.8) k/uL POC Glucose (mg/dL) 152 H 106 H (75-99) mg/dL Microbiology - Last 24 Hours (Table) 09/13/19 22:01 Urine Culture - Preliminary Urine,Voided
[2019-09-15] MEDS: metFORMIN 500 MG TAB PO SCH ×2 (07:42→22:27)
[2019-09-15] MEDS: hydroCHLOROthiazide 25 MG TAB PO SCH (07:43)
[2019-09-15] MEDS: POTASSIUM CITRATE 10 MEQ TABLET.ER PO SCH ×2 (07:43→22:27)
[2019-09-15] MEDS: allopurinoL 300 MG TAB PO SCH (07:43)
[2019-09-15 09:36] LABS: HCT 37.2 % (39.0-53.0); HGB 11.9 gm/dL (13.0-17.5); MCH 30.5 pg (25.0-35.0); MCHC 32.1 g/dL (31.0-37.0); MCV 94.9 fL (80.0-100.0); Mean Platelet Volume 6.8; Platelet Count 279 k/uL (150-450); RBC 3.92 m/uL (4.30-5.90); RDW 13.7 % (11.5-15.5); WBC 8.2 k/uL (3.8-10.6)
[2019-09-15 11:42] LABS: Glucose,Whole Blood 117 mg/dL (75-99)
[2019-09-15 16:30] LABS: Glucose,Whole Blood 99 mg/dL (75-99)
[2019-09-15 17:32] LABS: HCT 33.6 % (39.0-53.0); HGB 11.1 gm/dL (13.0-17.5); MCHC 32.9 g/dL (31.0-37.0); MCV 94.4 fL (80.0-100.0); Platelet Count 269 k/uL (150-450); RBC 3.57 m/uL (4.30-5.90); RDW 13.6 % (11.5-15.5); WBC 8.7 k/uL (3.8-10.6)
[2019-09-15 21:27] LABS: Glucose,Whole Blood 98 mg/dL (75-99)
[2019-09-16 02:59] LABS: HCT 32.4 % (39.0-53.0); HGB 10.6 gm/dL (13.0-17.5); MCHC 32.7 g/dL (31.0-37.0); MCV 94.8 fL (80.0-100.0); Mean Platelet Volume 7.8; Platelet Count 255 k/uL (150-450); RBC 3.42 m/uL (4.30-5.90); RDW 13.6 % (11.5-15.5)
[2019-09-16] MEDS: SODIUM CHLORIDE 0.9% 1,000 ML IV SCH ×3 (05:00→18:45)
[2019-09-16 06:49] LABS: Glucose,Whole Blood 105 mg/dL (75-99)
[2019-09-16 07:34] LABS: Basophils % (A) 1 %; Eosinophils # (A) 0.2 k/uL (0-0.7); Eosinophils % (A) 3 %; HCT 31.4 % (39.0-53.0); HGB 10.4 gm/dL (13.0-17.5); Lymphocytes # (A) 1.1 k/uL (1.0-4.8); Lymphocytes % (A) 19 %; MCH 31.1 pg (25.0-35.0); MCV 94.2 fL (80.0-100.0); Mean Platelet Volume 7.1; Monocytes # (A) 0.4 k/uL (0-1.0); Monocytes % (A) 7 %; Neutrophils # (A) 4.2 k/uL (1.3-7.7); Neutrophils % (A) 70 %; Platelet Count 237 k/uL (150-450); RBC 3.34 m/uL (4.30-5.90); RDW 13.8 % (11.5-15.5); WBC 6.1 k/uL (3.8-10.6)
[2019-09-16] MEDS: allopurinoL 300 MG TAB PO SCH (08:37)
[2019-09-16] MEDS: POTASSIUM CITRATE 10 MEQ TABLET.ER PO SCH ×2 (08:37→21:59)
[2019-09-16] MEDS: metFORMIN 500 MG TAB PO SCH ×2 (08:37→22:00)
[2019-09-16] MEDS: hydroCHLOROthiazide 25 MG TAB PO SCH (08:37)
[2019-09-16 11:43] LABS: Glucose,Whole Blood 116 mg/dL (75-99)
[2019-09-16 16:55] LABS: Glucose,Whole Blood 121 mg/dL (75-99)
[2019-09-16 18:47] LABS: Basophils % (A) 1 %; Eosinophils # (A) 0.3 k/uL (0-0.7); Eosinophils % (A) 4 %; HCT 33.1 % (39.0-53.0); HGB 10.7 gm/dL (13.0-17.5); Lymphocytes # (A) 1.6 k/uL (1.0-4.8); Lymphocytes % (A) 22 %; MCH 30.9 pg (25.0-35.0); MCHC 32.4 g/dL (31.0-37.0); MCV 95.4 fL (80.0-100.0); Mean Platelet Volume 7.2; Monocytes # (A) 0.5 k/uL (0-1.0); Monocytes % (A) 7 %; Neutrophils # (A) 4.7 k/uL (1.3-7.7); Neutrophils % (A) 65 %; Platelet Count 262 k/uL (150-450); RBC 3.47 m/uL (4.30-5.90); RDW 13.6 % (11.5-15.5); WBC 7.3 k/uL (3.8-10.6)
--- NOTE | 2019-09-16 19:18 | P.PN ---
Subjective Progress Note Date: 09/16/19 Principal diagnosis: Gross hematuria Dr. Nicholas is feeling somewhat better as the day has progressed. He passed numerous clots and feels less bladder pressure. He states that he passed a 3 mm left ureteral calculus yesterday. The hematuria has persisted. Objective - Vital Signs Vital signs: Vital Signs Temp 99.2 F 09/16/19 15:00 Pulse 83 09/16/19 15:00 Resp 16 09/16/19 15:00 BP 128/67 09/16/19 15:00 Pulse Ox 97 09/16/19 15:00 Intake & Output 09/16/19 09/16/19 09/17/19 06:59 18:59 06:59 Intake Total 680 Output Total 750 1500 Balance -70 -1500 Intake: Intake, IV Titration 300 Amount Sodium Chloride 0.9% 1, 300 000 ml @ 150 mls/hr IV . Q6H40M [facility] Rx#:[id number] Oral 380 Output: Urine 750 1500 Other: Voiding Method Urinal Toilet Urinal # Voids 3 3 - Constitutional General appearance: Present: cooperative, no acute distress - Gastrointestinal Gastrointestinal Comment(s): Soft, non-tender, non-distended. The flank dressing is dry and intact. - Psychiatric Psychiatric: Present: A&O x's 3, appropriate affect, intact judgment & insight - Labs CBC & Chem 7: 09/16/19 18:26 09/13/19 21:00 Labs: Abnormal Lab Results - Last 24 Hours (Table) 09/16/19 09/16/19 09/16/19 Range/Units 02:49 06:47 07:16 RBC 3.42 L 3.34 L (4.30-5.90) m/uL Hgb 10.6 L 10.4 L (13.0-17.5) gm/dL Hct 32.4 L 31.4 L (39.0-53.0) % POC Glucose (mg/dL) 105 H (75-99) mg/dL 09/16/19 09/16/19 09/16/19 Range/Units 11:41 16:54 18:26 RBC 3.47 L (4.30-5.90) m/uL Hgb 10.7 L (13.0-17.5) gm/dL Hct 33.1 L (39.0-53.0) % POC Glucose (mg/dL) 116 H 121 H (75-99) mg/dL Assessment and Plan (1) Nephrostomy tube bleed Current Visit: Yes Status: Acute Code(s): T83.83XA - HEMORRHAGE DUE TO GENITOURINARY PROSTH DEV/GRFT, INIT SNOMED Code(s): 861992730 Plan: Will monitor hemoglobin overnight. Anticipate discharge home tomorrow if hemoglobin level is stable.
[2019-09-16 21:10] LABS: Glucose,Whole Blood 117 mg/dL (75-99)
[2019-09-17] MEDS: SODIUM CHLORIDE 0.9% 1,000 ML IV SCH ×3 (03:52→11:25)
[2019-09-17 06:40] LABS: Glucose,Whole Blood 102 mg/dL (75-99)
[2019-09-17 07:19] LABS: HCT 32.1 % (39.0-53.0); HGB 10.4 gm/dL (13.0-17.5); MCHC 32.4 g/dL (31.0-37.0); MCV 95.7 fL (80.0-100.0); Platelet Count 233 k/uL (150-450); RBC 3.36 m/uL (4.30-5.90); RDW 13.6 % (11.5-15.5); WBC 6.4 k/uL (3.8-10.6)
[2019-09-17 07:58] VITALS: BP 125/71; PULSE 66; RESP 12; TEMP 98
[2019-09-17] MEDS: hydroCHLOROthiazide 25 MG TAB PO SCH (07:58)
[2019-09-17] MEDS: POTASSIUM CITRATE 10 MEQ TABLET.ER PO SCH (07:58)
[2019-09-17] MEDS: allopurinoL 300 MG TAB PO SCH (07:58)
[2019-09-17] MEDS: metFORMIN 500 MG TAB PO SCH (07:58)
--- NOTE | 2019-09-17 08:38 | P.DS ---
Providers Date of admission: 09/15/19 15:21 Expected date of discharge: 09/17/19 Attending physician: Adriel Cage MD Primary care physician: Francisco Diaz - Discharge Diagnosis(es) (1) Nephrostomy tube bleed Current Visit: Yes Status: Acute Hospital Course: The patient recently underwent a right percutaneous nephrolithotomy. He was admitted 09/14/2019 with hematuria. The nephrostomy tube was removed on September 14, and the hematuria increased. Throughout the hospitalization, he was noted to have hematuria with clots. He passed numerous clots on the morning of discharge and was subsequently voiding without difficulty. The hemoglobin level is stable at 10.4. The flank dressing remained dry and intact. Patient Condition at Discharge: Fair Plan - Discharge Summary Discharge Rx Participant: No New Discharge Prescriptions: No Action hydroCHLOROthiazide [Hydrodiuril] 25 mg PO DAILY Potassium Citrate [Urocit-K] 30 meq PO BID Diclofenac Sodium [Diclofenac Sodium ER] 100 mg PO DAILY PRN PRN Reason: Pain metFORMIN HCL [Glucophage] 500 mg PO BID Ketorolac [Toradol] 10 mg PO Q6H PRN PRN Reason: Pain allopurinoL [Zyloprim] 300 mg PO DAILY Acetaminophen/Diphenhydramine [Tylenol Pm Ex-Strength Caplet] 2 tab PO BID PRN PRN Reason: Pain Discharge Medication List Diclofenac Sodium [Diclofenac Sodium ER] 100 mg PO DAILY PRN 08/03/19 [History] Ketorolac [Toradol] 10 mg PO Q6H PRN 08/03/19 [History] Potassium Citrate [Urocit-K] 30 meq PO BID 08/03/19 [History] allopurinoL [Zyloprim] 300 mg PO DAILY 08/03/19 [History] hydroCHLOROthiazide [Hydrodiuril] 25 mg PO DAILY 08/03/19 [History] metFORMIN HCL [Glucophage] 500 mg PO BID 08/03/19 [History] Acetaminophen/Diphenhydramine [Tylenol Pm Ex-Strength Caplet] 2 tab PO BID PRN 09/05/19 [History] Follow up Appointment(s)/Referral(s): Francisco Diaz MD [Primary Care Provider] - 1-2 days John Kessler MD [STAFF PHYSICIAN] - 1 Week Activity/Diet/Wound Care/Special Instructions: Diet as tolerated. No strenuous activity. Plenty of po fluids. Discharge Disposition: HOME SELF-CARE
[2019-09-17 11:55] LABS: Glucose,Whole Blood 96 mg/dL (75-99)
--- NOTE | 2019-09-17 12:23 | CDI ---
Patient had acute blood loss anemia. Documentation Clarification Form Date: 09/17/2019 11:53:48 AM From: Emily Birmingham RN, CCDS Admit Date: 09/15/2019 03:21:00 PM Patient Name: Booker Nicholas Visit Number: [id number] Discharge Date: ATTENTION: The Clinical Documentation Specialists (CDI) and [facility] Coding Staff appreciate your assistance in clarifying documentation. Please respond to the clarification below the line at the bottom and electronically sign. The CDI & [facility] Coding staff will review the response and follow-up if needed. Please note: Queries are made part of the Legal Health Record. If you have any questions, please contact the author of this message via ITS. Dr. Anderson Mitchell Please render your opinion on the clinical significance of the patients hemoglobin/hematocrit levels. History/Risk Factors: Diabetes mellitus Kidney stones Clinical indicators: 59-year-old male who present to ED on 09/12 with complaints of lenora blood coming from nephrostomy tube. He had cystoscopy and right nephrostomy tube placement on 09/10/19. He was admitted with gross hematuria: On 09/15 he continued to pass numerous clots per progress notes. 09/12 Vital signs: 126/76 117 20 98.1 97% RA 09/12 HGB 15.2, HCT 45.3 09/13 HGB 14.3, HCT 43.6 09/14 HGB 11.9, HCT 37.2 09/15 HGB 10.4, HCT 32.1 Treatment: Monitor vital signs and CBC per orders Monitor urine output In order to capture the severity of condition, please clarify if the labs/clinical indicators signify: Acute blood loss anemia Unable to determine Other, please specify (Last Form Revision: April 2019) MTDD
== END 2019-09-17 13:45 | disposition home or self-care (01) | DRG 699 ==
LOC: EC 20:36 → 1SOBS 21:51 → OBSVTOIN 09-15 15:21
PROVIDERS: ADMIT Urology; ATTEND Urology
PROC: 0TP5X0Z Removal of Drainage Device from Kidney, External Approach (ICD-10-PCS; principal; 2019-09-15)
DX: T83.83XA Hemorrhage due to genitourinary prosthetic devices, implants and grafts, initial encounter (principal); D62 Acute posthemorrhagic anemia; N20.1 Calculus of ureter; E11.9 Type 2 diabetes mellitus without complications; Z11.59 Encounter for screening for other viral diseases; Z87.442 Personal history of urinary calculi; Z79.899 Other long term (current) drug therapy; Z79.84 Long term (current) use of oral hypoglycemic drugs; Z91.041 Radiographic dye allergy status; Z98.890 Other specified postprocedural states; Z82.49 Family history of ischemic heart disease and other diseases of the circulatory system; Z83.3 Family history of diabetes mellitus
CPT/HCPCS: 36415; 80048; 81001; 85025; 85027; 85610; 85730; 86850; 86900; 86901; 87086; 96374; 96375; 99284

== ENCOUNTER → 2019-09-18 | Day surgery (SDC) | payer BC ==
[~2019-09-18] MED LIST changes: -AMPICILLIN 1,000 MG in SODIUM CHLORIDE 0.9% 50 ML IVPB ONE; -GENTAMICIN 130 MG in SODIUM CHLORIDE 0.9% 100 ML IVPB ONE; -HYDROmorphone 0.5 MG/0.5 ML SYRINGE IVP PRN; +IOPAMIDOL M200 10 ML VIAL MISCELLANE ONE; +IOPAMIDOL-370 50ML BTL MISCELLANE ONE; +LACTATED RINGERS 1,000 ML IV ONE; +LIDOCAINE 1% INJ 10MG/ML (20 ML MDV) ONE; +MIDAZOLAM 2 MG/2 ML VIAL ONE; +ONDANSETRON 4 MG/2 ML VIAL ONE; +PROPOFOL 10 MG/ML 20 ML VIAL IV ONE; +ePHEDrine SULFATE/0.9% NACL/PF 50 MG/5 ML SYRINGE IV ONE; +fentaNYL (PF) 50 MCG/ML 2 ML AMP ONE
--- NOTE | 2019-09-18 08:48 | P.GSHP ---
History of Present Illness H&P Date: 09/18/19 Chief Complaint: Urinary drainage from right flank. Dr. Nicholas is 59 yo male with hx of right sided kidney stone, S/P PCNL on 09/[address] Kessler. He presented to the ED several days ago with hematuria from the PCN and maritn. He was also complaining of flank pain. Denies any fever/chills, dysuria. The flank pain resolved, but he was hospitalized for several days for observation as his hemoglobin level dropped, stabilizing at 10.4. He passed multiple clots and was discharged home yesterday. Overnight, he experienced significant right flank discomfort, relieved following the drainage of blood and urine through the right flank incision. This am he indicates his flank pain has resolved. - Constitutional Constitutional: Denies chills, Denies fever - Genitourinary (Female) Genitourinary: Reports difficulty voiding, Reports flank pain, Reports hematuria Past Medical History Past Medical History: Diabetes Mellitus Additional Past Medical History / Comment(s): hyperuricemia, meniere's diease, kidney stones History of Any Multi-Drug Resistant Organisms: None Reported Past Surgical History: No Surgical Hx Reported Additional Past Surgical History / Comment(s): LT percutaneous nephrolithotomyX 2 AND CYSTOSCOPY, SPHINCEROTOMY SX FOR FISSURE 1987, percutaneous frosted lithotomy and nephrotube placement 09/10/19 Past Anesthesia/Blood Transfusion Reactions: No Reported Reaction Past Psychological History: No Psychological Hx Reported Smoking Status: Never smoker Past Alcohol Use History: Rare Past Drug Use History: None Reported - Past Family History Father History Unknown: Yes Family Medical History: Congestive Heart Failure (CHF), Diabetes Mellitus Mother Family Medical History: Diabetes Mellitus, Pulmonary Embolus Medications and Allergies Home Medications Medication Instructions Recorded Confirmed Type Diclofenac Sodium [Diclofenac 100 mg PO DAILY PRN 08/03/19 09/13/19 History Sodium ER] Ketorolac [Toradol] 10 mg PO Q6H PRN 08/03/19 09/13/19 History Potassium Citrate [Urocit-K] 30 meq PO BID 08/03/19 09/13/19 History allopurinoL [Zyloprim] 300 mg PO DAILY 08/03/19 09/13/19 History hydroCHLOROthiazide [Hydrodiuril] 25 mg PO DAILY 08/03/19 09/13/19 History metFORMIN HCL [Glucophage] 500 mg PO BID 08/03/19 09/13/19 History Acetaminophen/Diphenhydramine 2 tab PO BID PRN 09/05/19 09/13/19 History [Tylenol Pm Ex-Strength Caplet] Allergies Allergy/AdvReac Type Severity Reaction Status Date / Time Iodinated Contrast Media Allergy Anaphylaxis Verified 09/13/19 22:22 Surgical - Exam - General well developed, well nourished, moderate distress - Respiratory normal respiratory effort - Abdomen Soft, non-distended. Drainage is noted from the right flank incision. - Psychiatric oriented to time, oriented to person, oriented to place, speech is normal, m van nuys intact Assessment and Plan (1) Kidney stone Status: Acute Code(s): N20.0 - CALCULUS OF KIDNEY SNOMED Code(s): 93349975 Plan: It is my presumption that the patient has ureteral obstruction, either from a calculus fragment or clot. He will undergo cystoscopy, right retrograde pyelogram, right ureteral stent insertion. If the calculus is identified within the ureter, it will be removed ureteroscopically. The rationale for this approach is been discussed in detail with the patient.
[2019-09-18 10:06] LABS: Glucose,Whole Blood 120 mg/dL (75-99)
--- NOTE | 2019-09-18 12:35 | P.OP ---
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 He presented to the ED several days ago with hematuria from the PCN and martin. He was also complaining of flank pain. Denies any fever/chills, dysuria. The flank pain resolved, but he was hospitalized for several days for observation as his hemoglobin level dropped, stabilizing at 10.4. He passed multiple clots and was discharged home yesterday. Overnight, he experienced significant right flank discomfort, relieved following the drainage of blood and urine through the right flank incision. This am he indicates his flank pain has resolved. Operative Findings: No ureteral calculi or clot seen. Right intrarenal clot. Description of Procedure: The patient was taken to the operating room and placed in the dorsolithotomy position, with legs supported in Alfonso stirrups. The external genitalia was prepped and draped sterilely. The 30 lens was used to introduce the 22-[place] Stortz cystoscopic sheath through the urethra and into the bladder under direct vision. The prostatic urethra showed evidence of mild lateral lobe enlargement. The bladder was examined in its entirety. Both ureteral orifices were of normal anatomic location and configuration. Clear urine effluxed from the left ureteral orifice. No efflux was seen on the right side. No tumors or foreign bodies were seen. A tiny clot was seen. Using a 10-[place] cone-tipped catheter, a right retrograde pyelogram was performed. The entire course of the ureter was seen. Though it was somewhat increased in caliber, there was no evidence of obstruction. No filling defects were seen. However, a large filling defect representing a clot was seen within the right renal pelvis. An 0.035 inch Glidewire was passed through the cysto scope. The right ureteral orifice was cannulated, but resistance was met after advancing the ureteroscope 1-2 cm. The cystoscope was removed, and ureteroscopy was performed using the [facility] semirigid ureteroscope. The ureteroscope was advanced into the bladder under direct vision. The right ureteral orifice was cannulated, and the ureteroscope was slowly advanced. It was apparent that the Glidewire had not passed simply due to angulation of the ureter. The ureteroscope was advanced up to the mid ureter, at which time the course of the ureter changed and the ureteroscope could not be further advanced. Within the portion of the ureter visualized, no calculi or clot were seen. The Glidewire was passed through the ureteroscope, which was removed. The Glidewire was then backloaded into the cystoscope, which was passed into the bladder. A 28 cm, 6- [place] double-J ureteral stent was placed over the wire. Proper stent positioning was verified fluoroscopically and endoscopically. There was evidence of a hydronephrotic flores, his bloody urine drained through and around the stent. The cystoscope was removed. An 18-[place] Martin catheter was placed. The patient tolerated the procedure well was taken to the recovery room in stable condition.
[2019-09-18 12:37] VITALS: TEMP 97.4
--- NOTE | 2019-09-18 12:37 | FL ---
EXAMINATION TYPE: FL urography retrograde DATE OF EXAM: 09/18/2019 COMPARISON: NONE HISTORY: Fluoroscopy time TECHNIQUE: Fluoroscopy. FINDINGS: Fluoroscopic guidance of 25 seconds was provided IMPRESSION: As Above.
[2019-09-18 12:47] VITALS: RESP 16
[2019-09-18 14:01] LABS: HCT 34.4 % (39.0-53.0); MCH 30.6 pg (25.0-35.0); MCHC 31.9 g/dL (31.0-37.0); MCV 95.8 fL (80.0-100.0); Mean Platelet Volume 7.2; Platelet Count 263 k/uL (150-450); RBC 3.59 m/uL (4.30-5.90); RDW 13.6 % (11.5-15.5); WBC 7.8 k/uL (3.8-10.6)
[2019-09-18 14:28] VITALS: BP 122/60; PULSE 75
== END | disposition home or self-care (01) ==
LOC: OR 09:30
PROVIDERS: ATTEND Urology
DX: N20.0 Calculus of kidney (principal); E11.9 Type 2 diabetes mellitus without complications; H81.09 Meniere's disease, unspecified ear; Z79.84 Long term (current) use of oral hypoglycemic drugs; Z79.899 Other long term (current) drug therapy; Z91.041 Radiographic dye allergy status; Z87.442 Personal history of urinary calculi; Z83.3 Family history of diabetes mellitus; Z82.49 Family history of ischemic heart disease and other diseases of the circulatory system
CPT/HCPCS: 85027; 74420; 52332; C1758; C1769; C2617; J2250; J1100; J0690; J2405; J2001; J3010; J2704; Q9967; Q9966